=== PATIENT | male | born 1980 | race Two or more races ===

== ENCOUNTER 2025-02-06 15:21 | Inpatient (IN) | payer MEDICAID ==
[~2025-02-06] VITALS: Ht 175.3 cm; Wt 86.2 kg
[~2025-02-06 15:21] MED LIST: BUPR-50 PO; BUSP15 PO; VENL-68 PO
[2025-02-06] MEDS ORDERED: ZOLPIDEM TARTRATE 10 MG TABLET PO PRN (15:45)
[2025-02-07 00:02] VITALS: BP 107/70; PULSE 61; RESP 18; TEMP 97.6; O2SAT 99
[2025-02-07 08:27] VITALS: RESP 18
[2025-02-07] MEDS ORDERED: MAG HYDROX/ALUMINUM HYD/SIMETH ES 30 ML SUSPENSION UDCUP PO PRN (10:00)
[2025-02-07] MEDS ORDERED: PETROLATUM,WHITE 28 GM JELLY TP PRN (10:00)
[2025-02-07] MEDS ORDERED: OMEPRAZOLE 20 MG CAPSULE PO PRN (10:00)
[2025-02-07] MEDS ORDERED: LOPERAMIDE HCL 2 MG CAPSULE PO PRN (10:00)
[2025-02-07] MEDS ORDERED: BENZOCAINE/MENTHOL [CEPACOL] LOZENGE PO PRN (10:00)
[2025-02-07] MEDS ORDERED: BACITRACIN 28 GM OINTMENT TP PRN (10:00)
[2025-02-07] MEDS ORDERED: DOCUSATE SODIUM 100 MG CAPSULE PO PRN (10:00)
[2025-02-07] MEDS ORDERED: ALBUTEROL SULFATE HFA 90 MCG/PUFF 8 GM INHALER IH PRN (10:00)
[2025-02-07] MEDS ORDERED: ONDANSETRON 4 MG TABLET PO PRN (10:00)
[2025-02-07] MEDS ORDERED: IBUPROFEN 600 MG TABLET PO PRN (10:00)
[2025-02-07] MEDS ORDERED: ACETAMINOPHEN 325 MG TABLET PO PRN (10:00)
[2025-02-07] MEDS ORDERED: MAGNESIUM HYDROXIDE SUSPENSION 30 ML UDCUP PO PRN (10:00)
[2025-02-07] MEDS: BuPROPion HCL XL 150 MG ER TABLET PO SCH (12:56)
[2025-02-07] MEDS: VENLAFAXINE HCL 75 MG ER CAPSULE PO SCH (16:17)
[2025-02-08 08:13] VITALS: RESP 18
[2025-02-08] MEDS: NICOTINE POLACRILEX 2 MG LOZENGE PO PRN (09:58)
[2025-02-08 20:01] VITALS: RESP 18
[2025-02-08 20:38] VITALS: RESP 17
[2025-02-09] MEDS ORDERED: BUSP15 PO (20:16)
[2025-02-09] MEDS ORDERED: VENL-193 PO (20:16)
== END 2025-02-09 22:10 | disposition left against medical advice (07) | DRG 750 ==
LOC: B3A 15:36
PROVIDERS: ADMIT Psychiatry & Neurology Child & Adolescent Psychiatry; ATTEND Psychiatry & Neurology Child & Adolescent Psychiatry
PROC: GZ56ZZZ Individual Psychotherapy, Supportive (ICD-10-PCS; 2025-02-07)
PROC: GZ58ZZZ Individual Psychotherapy, Cognitive-Behavioral (ICD-10-PCS; 2025-02-07)
PROC: GZ52ZZZ Individual Psychotherapy, Cognitive (ICD-10-PCS; principal; 2025-02-08)
DX: F20.0 Paranoid schizophrenia (principal); R45.851 Suicidal ideations; F12.10 Cannabis abuse, uncomplicated; F14.90 Cocaine use, unspecified, uncomplicated; F15.10 Other stimulant abuse, uncomplicated; F41.9 Anxiety disorder, unspecified; G47.00 Insomnia, unspecified; K59.00 Constipation, unspecified; Z53.29 Procedure and treatment not carried out because of patient's decision for other reasons; Z72.0 Tobacco use
CPT/HCPCS: Z7610

== ENCOUNTER 2025-02-06 17:49 | Emergency (ER) | payer MEDICAID ==
[~2025-02-06] VITALS: Ht 175.3 cm; Wt 86.4 kg
[2025-02-06 18:05] LABS: COVID AG,FIA SOURCE NASAL SWAB
[2025-02-06 18:27] LABS: SARS-COV2 (COVID) ANTIGEN,FIA Negative (Negative)
[2025-02-06 23:28] VITALS: BP 135/73; PULSE 83; RESP 18; TEMP 98.605328; O2SAT 98
== END 2025-02-06 23:42 ==
LOC: EMS 17:49
DX: Z00.8 Encounter for other general examination (principal); F20.9 Schizophrenia, unspecified; R45.851 Suicidal ideations; F12.90 Cannabis use, unspecified, uncomplicated; F17.210 Nicotine dependence, cigarettes, uncomplicated; Z79.899 Other long term (current) drug therapy; Z20.822 Contact with and (suspected) exposure to COVID-19
CPT/HCPCS: 99285; Z7502